=== PATIENT | male | born 1930 | race Caucasian/White ===

== ENCOUNTER 2017-02-25 10:01 | Emergency (ER) | payer MEDICARE ==
[~2017-02-25] VITALS: Ht 180.3 cm; Wt 77.1 kg
[2017-02-25 10:24] VITALS: BP 145/66
[2017-02-25] MEDS ORDERED: LIDOCAINE 1% / SOD BICARB 8.4% 20 ML VIAL. IJ ONE ×2 (10:45)
[2017-02-25] MEDS ORDERED: DIPHTH,PERTUSS(ACELL),TET TOX 0.5 ML DISP.SYRIN. VAX IM ONE (10:45)
--- NOTE | 2017-02-25 11:40 | PHYS DOC ---
Past Medical History Past Medical History: CAD, Gallstones, GERD, High Cholesterol, Hyperthyroid, Kidney Stone Past Surgical History: Coronary Bypass Surgery, Other Additional Past Surgical Histo: cardiac stent, gallstone and kidney stone removal Alcohol Use: None Drug Use: None Adult General Chief Complaint Chief Complaint: LACERATION/AVULSION HPI HPI Patient is a 86 year old male with history of CAD, high cholesterol, gallstones , kidney stones, who presents with left frontal occipital laceration. Patient states he was hanging a light fixture when it came down and fell on him. Patient denies any loss of consciousness. He states he takes aspirin every day. Review of Systems Review of Systems Constitutional: Denies fever or chills [] Eyes: Denies change in visual acuity, redness, or eye pain [] HENT: Denies nasal congestion or sore throat [] Respiratory: Denies cough or shortness of breath [] Cardiovascular: No additional information not addressed in HPI [] GI: Denies abdominal pain, nausea, vomiting, bloody stools or diarrhea [] : Denies dysuria or hematuria [] Musculoskeletal: Denies back pain or joint pain [] Integument: Left frontal occipital laceration Neurologic: Denies headache, focal weakness or sensory changes [] Endocrine: Denies polyuria or polydipsia [] Current Medications Current Medications Current Medications Medications (Trade) Dose Ordered Sig/Yaa Start Time Stop Time Status Last Admin Dose Admin Diphtheria/ Tetanus/Acell Pertussis (Boostrix) 0.5 ml ONCE ONCE 02/25/17 10:45 02/25/17 10:46 DC 02/25/17 10:47 0.5 ML Lidocaine/Sodium Bicarbonate (Buffered Lidocaine 1%) 20 ml 1X ONCE 02/25/17 10:45 02/25/17 10:46 DC Allergies Allergies Allergies Coded Allergies Type Severity Reaction Last Updated Verified Sulfa (Sulfonamide Antibiotics) Allergy Intermediate 02/25/17 Yes Physical Exam Physical Exam Constitutional: Well developed, well nourished, no acute distress, non-toxic appearance. [] HENT: Normocephalic, atraumatic, bilateral external ears normal, oropharynx moist, no oral exudates, nose normal. [] Eyes: PERRLA, EOMI, conjunctiva normal, no discharge. [] Neck: Normal range of motion, no tenderness, supple, no stridor. [] Cardiovascular:Heart rate regular rhythm, no murmur [] Lungs & Thorax: Bilateral breath sounds clear to auscultation [] Abdomen: Bowel sounds normal, soft, no tenderness, no masses, no pulsatile masses. [] Skin: Left frontal occipital with a laceration approximately 6 cm long. Back: No tenderness, no CVA tenderness. [] Extremities: No tenderness, no cyanosis, no clubbing, ROM intact, no edema. [] Neurologic: Alert and oriented X 3, normal motor function, normal sensory function, no focal deficits noted. [] Psychologic: Affect normal, judgement normal, mood normal. [] Current Patient Data Vital Signs Vital Signs Date Time Temp Pulse Resp B/P (MAP) Pulse Ox O2 Delivery O2 Flow Rate FiO2 02/25/17 10:24 98.3 54 18 145/66 (92) 99 Room Air 98.3 EKG EKG [] Radiology/Procedures Radiology/Procedures Indication: First degree laceration to the left frontal occipital Procedure: The patient was placed in the appropriate position and anesthesia around the laceration was 1% of a buffered lidocaine. The laceration was cleaned with 50 ML of normal saline. It was explored for foreign objects which were not found. The laceration was closed with 10 wyatt and left open to air. Total repaired wound length: Approximately 6 cm long Other Items: none The patient tolerated the procedure well Complications:none Course & Med Decision Making Course & Med Decision Making Pertinent Labs and Imaging studies reviewed. (See chart for details) Patient has left fronto-occipital laceration that was closed with wyatt by me. He and the were provided wound care instructions as well as return precautions. Patient received tetanus in the ED. Follow-up with PCP or the ED 7- 10 days for staple removal Dragon Disclaimer Dragon Disclaimer This electronic medical record was generated, in whole or in part, using a voice recognition dictation system. Departure Departure Impression: Primary Impression: Laceration of head Disposition: 01 HOME, SELF-CARE Condition: STABLE Referrals: CHUCKY BROWER MD (PCP) Follow-up with your primary care doctor or the emergency room in 7-10 days for suture removal Patient Instructions: Laceration Care, Adult Additional Instructions: Your laceration was closed with wyatt. Keep it clean and dry. You can shower and get the area wet but do not soak it. Apply Neosporin to the area twice a day. Follow-up with your doctor or the emergency room in 7-10 days for staple removal. Monitor the area for signs and symptoms of infection including increased redness warmth or odor drainage from the area. Follow-up with your doctor or come back to the ED if they occur. Come back to the ED if you develop a fever. Problem Qualifiers Primary Impression: Laceration of head Encounter type: initial encounter Location of open wound of head: scalp Foreign body presence: without foreign body Qualified Codes: S01.01XA - Laceration without foreign body of scalp, initial encounter ALEXANDRU VELIZ WINDOW INSTALLER Feb 25, 2017 11:40
== END 2017-02-25 11:45 | disposition home or self-care (01) ==
LOC: ER 10:01
DX: S01.01XA Laceration without foreign body of scalp, initial encounter (principal); K21.9 Gastro-esophageal reflux disease without esophagitis; E78.5 Hyperlipidemia, unspecified; E05.90 Thyrotoxicosis, unspecified without thyrotoxic crisis or storm; I25.810 Atherosclerosis of coronary artery bypass graft(s) without angina pectoris; Z95.1 Presence of aortocoronary bypass graft; W22.8XXA Striking against or struck by other objects, initial encounter; Y93.89 Activity, other specified; Y99.8 Other external cause status; Y92.89 Other specified places as the place of occurrence of the external cause
CPT/HCPCS: 12002; 90471; 90715; 99283-25

== ENCOUNTER → 2018-10-05 | Outpatient (CLI) | payer MEDICARE ==
--- NOTE | 2018-10-05 14:41 | KCIC ---
MRI Lumbar Spine without contrast History: Low back pain, bilateral radiculopathy Technique: Multiplanar, multi sequential noncontrast MR imaging was performed of the lumbar spine. Comparison: May 13, 2015 Findings: Lumbar vertebral body stature and AP alignment are maintained. There is again mild levoscoliosis. There is again moderate degenerative disc disease L4-5, progression of moderate degenerative disc disease at L3-4, mild to moderate degenerative disc disease at L2-3 mild disc desiccation L5-S1. There is now endplate edema on the left at L4-5 also with edema of the left L4 and L5 pedicles more likely reactive/degenerative in etiology. There is infrarenal abdominal aortic aneurysm in greatest dimension about 4.9 cm, probably somewhat larger although otherwise difficult to accurately compare. L1-2: Spinal canal and neural foramina are adequate. L2-L3: There is again minimal disc osteophyte complex, superimposed bulge/protrusion eccentric to the lateral recesses unchanged. There is again mild narrowing of the far lateral recesses. There is mild buckling of the ligamentum flavum. There is very mild narrowing of the right neural foramen primarily from posteriorly by facet, left neural foramen adequate. L3-L4: There is again minimal disc osteophyte complex, mild buckling of the ligamentum flavum, and mild facet degenerative change. There is [id number] narrowing of the far right lateral recess, minimal narrowing of the far lateral recess. There is again mild narrowing of the right neural foramen, left neural foramen overall adequate. L4-L5: There is moderate to severe left facet degenerative change, minimally on the right. There is [id number] buckling of the ligamentum flavum. There is now synovial cyst in the right lateral recess associated with the ligamentum flavum about 0.7 x 0.4 cm axial oblique dimensions by 0.8 cm cc. There is again minimal disc osteophyte complex and bulge. There is increased fairly severe spinal stenosis with limited preserved subarachnoid space, increased right lateral recess stenosis from posteriorly by synovial cyst with increased impingement of the descending right L5 nerve root. There is again contact of the descending left L5 nerve root in left lateral recess. There is again severe narrowing of the left neural foramen with impingement of the exiting left L4 nerve root by disc osteophyte complex and facet degenerative change, overall degree of narrowing somewhat greater. Right neural foramen is adequate. L5-S1: Spinal canal and neural foramina are adequate. Impression: 1. There is infrarenal abdominal aortic aortic aneurysm up to about 4.9 cm apparently larger although difficult to accurately compare, not fully included on either exam. 2. There is increased fairly severe spinal stenosis L4-5, increased right lateral recess stenosis by synovial cyst with increased impingement of the descending right L5 nerve root. Since the 2014 exam, there has been progression of degenerative disc disease L2-3 through L4-5. There is somewhat increased severe narrowing of the left L4-5 neural foramen with impingement of the exiting left L4 nerve root. There is [id number] right lateral recess stenosis L3-4. Electronically signed by: Kenny Massey MD (10/05/2018 2:37 PM) [id number]
== END | disposition home or self-care (01) ==
LOC: KCIC MRI 12:55
PROVIDERS: ATTEND Anesthesiology Pain Medicine
DX: M48.061 Spinal stenosis, lumbar region without neurogenic claudication (principal); M51.16 Intervertebral disc disorders with radiculopathy, lumbar region; I71.4 Abdominal aortic aneurysm, without rupture; M71.38 Other bursal cyst, other site; M25.78 Osteophyte, vertebrae
CPT/HCPCS: 72148